=== PATIENT | female | born 1990 | race Hispanic/Latino ===

== ENCOUNTER 2024-12-28 22:30 | Day surgery (SDC) | payer OTHER ==
[2024-12-28] MEDS ORDERED: Ondansetron PF 4 MG/2 ML Vial ONE (22:39)
[2024-12-28] MEDS ORDERED: Ketorolac Tromethamine 30 MG (1 mL) VIAL ONE (22:42)
[2024-12-28] MEDS ORDERED: Morphine 4 MG/ML VIAL ONE (23:19)
[2024-12-28 23:29] LABS: BHCG - Serum Negative (NEGATIVE); Pregs Control Background? CLEAR/WHITE (CLR/WHITE); Pregs Control Bar Appear? YES (CONTROL BAR)
[2024-12-28 23:35] LABS: ALT (SGPT) 16 U/L (Less than 34); AST (SGOT) 32 U/L (11-34); Albumin 4.3 g/dL (3.1-4.5); Alkaline Phosphatase 57 U/L (40-110); Anion Gap 15 mmol/L (10-20); BUN (Urea Nitrogen) 15 mg/dL (7.0-18.7); Bilirubin, Total 0.3 mg/dL (0.3-1.2); Calc. Creatinine Clearance 0 mL/min (70-130); Calcium 9.5 mg/dL (7.8-10.44); Carbon Dioxide 19 mmol/L (22-29); Chloride 108 mmol/L (98-107); Estimated GFR 116; Globulin 3.8 g/dL (2.4-3.5); Glucose 90 mg/dL (70-105); Potassium 3.9 mmol/L (3.5-5.1); Protein, Total 8.1 g/dL (6.0-8.3); Sodium 138 mmol/L (136-145)
[2024-12-29 00:16] LABS: Hematocrit 32.6 % (36.0-47.0); Hemoglobin 10.2 g/dL (12.0-16.0); Mean Corpuscular HGB CONC 31.3 g/dL (32.0-36.0); Mean Corpuscular Hemoglobin 23.1 pg (27.0-31.0); Mean Corpuscular Volume 73.9 fL (78.0-98.0); Mean Platelet Volume 9.7 fL (7.4-10.4); Platelet Count 495 10x3/uL (130-400); RBC Distribution Width 19.2 % (11.5-14.5); Red Blood Cell (RBC) Count 4.41 mill/uL (4.20-5.40)
[2024-12-29 00:40] LABS: #Basophils 0.03 10x3/uL (0.0-0.2); %Basophils 0.4 % (0.0-1.0); %Eosinophils 0.7 % (0.0-10.0); %Lymphocytes 31.2 % (21.0-51.0); %Monocytes 6.7 % (0.0-10.0); %Neutrophils 60.8 % (42.0-75.0)
[2024-12-29] MEDS ORDERED: Ondansetron PF 4 MG/2 ML Vial ONE ×2 (00:42→02:46)
[2024-12-29] MEDS ORDERED: Morphine 4 MG/ML VIAL ONE (00:42)
[2024-12-29 01:09] LABS: Bacteria/HPF None Seen HPF (None Seen); Bilirubin Negative (Negative); Blood, Urine Negative (Negative); CAUTI Indications for Culture Dysuria,urgency,freq; Clarity Clear (Clear); Glucose, Urine (Dipstick) Normal (Negative); Ketone, Urine Negative (Negative); Leukocyte 250 Leu/uL (Negative); Nitrite Negative (Negative); Protein, Urine (Dipstick) Negative (Neg-Trace); RBC/HPF None Seen HPF (0-3); Specific Gravity, Urine 1.005 (1.002-1.036); Squamous Epithelial 0-3 HPF (0-3); Urobilinogen Normal mg/dL (Less than 2)
[2024-12-29 01:12] LABS: Urine Culture Reflex No No
[2024-12-29 01:22] LABS: Anisocytosis SLIGHT = 6-15 cells HPF (0-5); Macrocytosis SLIGHT = 6-15 cells HPF (0-5); Platelet Adequacy Comment Platelets Normal; Polychromasia SLIGHT = 2-3 cells HPF (0-2)
[2024-12-29] MEDS ORDERED: cefTRIAXone (ROCEPHIN) 2 GM VIAL ONE (02:02)
[2024-12-29] MEDS ORDERED: Sodium Chloride 0.9% 100 ML ONE (02:02)
[2024-12-29] MEDS ORDERED: Iopamidol 15 ML ONE (02:23)
[2024-12-29] MEDS ORDERED: fentaNYL PF 100 MCG/2 ML SYRINGE ONE (02:42)
[2024-12-29] MEDS ORDERED: PROPOFOL 20 ML ONE (02:42)
[2024-12-29] MEDS ORDERED: Lidocaine 1% PF 5 ML VIAL ONE (02:46)
[2024-12-29] MEDS ORDERED: Dexamethasone 20 MG/5 ML VIAL ONE (02:46)
[2024-12-29] MEDS ORDERED: SUCCINYLCHOLINE/SOD CL,ISO/PF 200 MG/10 ML SYRINGE FS ONE (02:46)
[2024-12-29] MEDS ORDERED: PHENYLEPHRINE-NS 100 MCG/ML 10 ML SYRINGE ONE (03:30)
[2024-12-29] MEDS ORDERED: Rocuronium Bromide 10 MG/ML (10ML VIAL) ONE (03:30)
[2024-12-29] MEDS ORDERED: Iopamidol 30 ML ONE (03:38)
[2024-12-29] MEDS ORDERED: SUGAMMADEX SODIUM 200 MG/2 ML VIAL ONE (03:49)
[2024-12-29] MEDS ORDERED: fentaNYL 50 mcg/mL 1 mL Vial ONE (04:15)
== END 2024-12-29 05:02 | disposition home or self-care (01) ==
LOC: ERS 22:30 → EEVIPCON 22:30 → SDC/OP 12-29 02:57
PROVIDERS: ATTEND Urology
PROC: 0T778DZ Dilation of Left Ureter with Intraluminal Device, Via Natural or Artificial Opening Endoscopic (ICD-10-PCS; principal; 2024-12-29)
DX: N13.30 Unspecified hydronephrosis (principal); N20.1 Calculus of ureter; N28.89 Other specified disorders of kidney and ureter; Z98.51 Tubal ligation status
CPT/HCPCS: 71045; 74176; 74420; 80053; 81001; 84703; 85025; 87077; 87086; 93005; C2617; J0696; J1100; J1885; J2270; J2405; J2704; J3010; Q9967

== ENCOUNTER 2025-01-12 20:32 | Inpatient (IN) | payer OTHER ==
[2025-01-12] MEDS ORDERED: Ketorolac Tromethamine 30 MG (1 mL) VIAL ONE (21:33)
[2025-01-12] MEDS ORDERED: Ondansetron PF 4 MG/2 ML Vial ONE ×2 (21:33→22:52)
[2025-01-12 21:55] LABS: Bilirubin Negative (Negative); Blood, Urine 2+ (Negative); CAUTI Indications for Culture Dysuria,urgency,freq; Clarity Turbid (Clear); Glucose, Urine (Dipstick) 30 mg/dL (Negative); Ketone, Urine Negative (Negative); Leukocyte 25 Leu/uL (Negative); Nitrite Negative (Negative); Protein, Urine (Dipstick) 100 mg/dL (Neg-Trace); RBC/HPF Greater than 50 HPF (0-3); Specific Gravity, Urine 1.023 (1.002-1.036); Urobilinogen Normal mg/dL (Less than 2)
[2025-01-12 21:56] LABS: Bacteria/HPF 1+ HPF (None Seen); Urine Culture Reflex No No
[2025-01-12 21:58] LABS: #Basophils 0.04 10x3/uL (0.0-0.2); %Basophils 0.6 % (0.0-1.0); %Eosinophils 1.3 % (0.0-10.0); %Lymphocytes 36.1 % (21.0-51.0); %Monocytes 10.8 % (0.0-10.0); %Neutrophils 50.9 % (42.0-75.0); Hematocrit 33.3 % (36.0-47.0); Hemoglobin 10.3 g/dL (12.0-16.0); Mean Corpuscular HGB CONC 30.9 g/dL (32.0-36.0); Mean Corpuscular Hemoglobin 23.6 pg (27.0-31.0); Mean Corpuscular Volume 76.4 fL (78.0-98.0); Mean Platelet Volume 9.8 fL (7.4-10.4); Platelet Count 399 10x3/uL (130-400); RBC Distribution Width 19.4 % (11.5-14.5); Red Blood Cell (RBC) Count 4.36 mill/uL (4.20-5.40)
[2025-01-12 22:06] LABS: ALT (SGPT) 25 U/L (Less than 34); AST (SGOT) 47 U/L (11-34); Alkaline Phosphatase 63 U/L (40-110); Anion Gap 16 mmol/L (10-20); BUN (Urea Nitrogen) 15 mg/dL (7.0-18.7); Bilirubin, Total 0.1 mg/dL (0.3-1.2); Calc. Creatinine Clearance 0 mL/min (70-130); Carbon Dioxide 22 mmol/L (22-29); Chloride 108 mmol/L (98-107); Estimated GFR 107; Globulin 3.6 g/dL (2.4-3.5); Glucose 77 mg/dL (70-105); Protein, Total 7.6 g/dL (6.0-8.3); Sodium 142 mmol/L (136-145)
[2025-01-12 22:08] LABS: BHCG - Serum Negative (NEGATIVE); Pregs Control Background? CLEAR/WHITE (CLR/WHITE); Pregs Control Bar Appear? YES (CONTROL BAR)
[2025-01-12] MEDS ORDERED: Morphine 4 MG/ML VIAL ONE (22:11)
[2025-01-12] MEDS ORDERED: cefTRIAXone (ROCEPHIN) 1 GM VIAL ONE (23:06)
[2025-01-12] MEDS ORDERED: Sodium Chloride 0.9% 100 ML ONE (23:06)
[2025-01-12] MEDS ORDERED: Morphine 2 MG/ML VIAL ONE (23:34)
[2025-01-13] MEDS ORDERED: Acetaminophen 325 MG TAB PO PRN (00:18)
[2025-01-13] MEDS ORDERED: Ondansetron PF 4 MG/2 ML Vial IVP PRN (00:18)
[2025-01-13 00:56] VITALS: BMI 34.6
[2025-01-13] MEDS: Promethazine HCl 25 MG/ML VIAL IM SCH (01:19)
[2025-01-13 05:03] LABS: #Basophils 0.03 10x3/uL (0.0-0.2); %Basophils 0.4 % (0.0-1.0); %Lymphocytes 31.4 % (21.0-51.0); %Monocytes 8.5 % (0.0-10.0); %Neutrophils 58.3 % (42.0-75.0); Hematocrit 29.5 % (36.0-47.0); Hemoglobin 9.1 g/dL (12.0-16.0); Mean Corpuscular HGB CONC 30.8 g/dL (32.0-36.0); Mean Corpuscular Hemoglobin 23.5 pg (27.0-31.0); Mean Corpuscular Volume 76.2 fL (78.0-98.0); Mean Platelet Volume 9.5 fL (7.4-10.4); Platelet Count 332 10x3/uL (130-400); RBC Distribution Width 19.3 % (11.5-14.5); Red Blood Cell (RBC) Count 3.87 mill/uL (4.20-5.40)
[2025-01-13] MEDS: Ketorolac Tromethamine 30 MG (1 mL) VIAL IVP PRN (05:03)
[2025-01-13] MEDS: Ondansetron PF 4 MG/2 ML Vial IVP PRN (05:03)
[2025-01-13 05:18] LABS: Anion Gap 10 mmol/L (10-20); BUN (Urea Nitrogen) 14 mg/dL (7.0-18.7); Calc. Creatinine Clearance 170 mL/min (70-130); Calcium 8.7 mg/dL (7.8-10.44); Carbon Dioxide 23 mmol/L (22-29); Chloride 111 mmol/L (98-107); Estimated GFR 118; Glucose 106 mg/dL (70-105); Potassium 3.9 mmol/L (3.5-5.1); Sodium 140 mmol/L (136-145)
[2025-01-13 05:58] LABS: Bacteria/HPF 1+ HPF (None Seen); Bilirubin Negative (Negative); Blood, Urine 2+ (Negative); CAUTI Indications for Culture Alt mental st,lethar; Clarity Clear (Clear); Glucose, Urine (Dipstick) Normal (Negative); Ketone, Urine Negative (Negative); Leukocyte 75 Leu/uL (Negative); Nitrite Negative (Negative); Protein, Urine (Dipstick) 30 mg/dL (Neg-Trace); RBC/HPF 21-50 HPF (0-3); Specific Gravity, Urine 1.016 (1.002-1.036); Squamous Epithelial 0-3 HPF (0-3); Urobilinogen Normal mg/dL (Less than 2)
[2025-01-13 05:59] LABS: Urine Culture Reflex Yes Yes
[2025-01-13] MEDS: Morphine 4 MG/ML VIAL SLOW IVP PRN (10:27)
[2025-01-13] MEDS: Morphine 2 MG/ML VIAL SLOW IVP PRN (20:48)
[2025-01-14 12:59] VITALS: BP 103/69; TEMP 98
== END 2025-01-14 15:13 | DRG 699 ==
LOC: ERS 20:32 → EEVIPCON 20:32 → SURG B 23:31 → OBSVTOIN 01-13 11:53
PROVIDERS: ADMIT Internal Medicine; ATTEND Internal Medicine
PROC: 0TPD7DZ Removal of Intraluminal Device from Urethra, Via Natural or Artificial Opening (ICD-10-PCS; principal; 2025-01-13)
DX: T83.122A Displacement of indwelling ureteral stent, initial encounter (principal); N13.30 Unspecified hydronephrosis
CPT/HCPCS: 36415; 74176; 80048; 80053; 81001; 84703; 85025; 87086; 96365; 96375; 96376; J0696; J1885; J2270; J2272; J2405; J2550